=== PATIENT | male | born 1970 | race Caucasian/White ===

== ENCOUNTER 2017-08-14 15:03 | Emergency (ER) | payer OTHER ==
[2017-08-14] MEDS ORDERED: Lidocaine 1%* 5 ML VIAL INJ ONE (15:16)
--- NOTE | 2017-08-14 15:21 | ED ---
Laceration/Wound HPI - HPI Summary HPI Summary: 47-year-old male presents with lacerations left index finger today. He was cleaving meat and hit his left index finger. He has full range motion of his finger. He denies any numbness or tingling. The area is still bleeding a little bit. Tetanus up-to-date. He denies any other injury. Cleaned the area with peroxide. - History of Current Complaint Stated Complaint: LT INDEX FINGER LAC Time Seen by Provider: 08/14/17 15:09 Pain Intensity: 0 - Allergy/Home Medications Allergies/Adverse Reactions: Allergies Allergy/AdvReac Type Severity Reaction Status Date / Time aspirin AdvReac Mild GI Upset Verified 08/08/17 13:02 PMH/Surg Hx/FS Hx/Imm Hx Endocrine/Hematology History: Denies: Hx Anticoagulant Therapy, Hx Diabetes, Hx Thyroid Disease Cardiovascular History: Denies: Hx Hypertension, Hx Pacemaker/ICD Respiratory History: Reports: Hx Seasonal Allergies Denies: Hx Asthma, Hx Chronic Obstructive Pulmonary Disease (COPD) History: Denies: Hx Renal Disease Musculoskeletal History: Reports: Hx Arthritis, Hx Back Problems, Other Musculoskeletal History - Degenerative Disc Disease Sensory History: Reports: Hx Contacts or Glasses, Hx Hearing Problem Denies: Hx Hearing Aid Opthamlomology History: Reports: Hx Contacts or Glasses Neurological History: Reports: Hx Headaches - Occasionally, Other Neuro Impairments/Disorders - PAIN CLINIC PT Denies: Hx Dementia, Hx Seizures Psychiatric History: Denies: Hx Panic Disorder, Hx Substance Abuse - Surgical History Surgery Procedure, Year, and Place: arthroscopy to right shoulder - rotator cuff repair. tendon in lt thumb Infectious Disease History: No Infectious Disease History: Denies: Hx Clostridium Difficile, Hx Hepatitis, Hx Human Immunodeficiency Virus (HIV), Hx of Known/Suspected MRSA, Hx Shingles, Hx Tuberculosis, Traveled Outside the [place] in Last 30 Days - Family History Known Family History: Positive: Diabetes - Social History Alcohol Use: Rare Alcohol Amount: "quit drinking" 8 months ago Substance Use Type: Reports: Marijuana Substance Use Comment - Amount & Last Used: [place], daily marijuana Smoking Status (MU): Current Every Day Smoker Type: Cigarettes Amount Used/How Often: 1/2 PPD Length of Time of Smoking/Using Tobacco: 20+ years Have You Smoked in the Last Year: Yes Review of Systems Negative: Fever Negative: Chest Pain Negative: Shortness Of Breath Positive: Other - left index finger laceration All Other Systems Reviewed And Are Negative: Yes Physical Exam Triage Information Reviewed: Yes Vital Signs On Initial Exam: Initial Vitals Temp Pulse Resp BP Pulse Ox 99.2 F 76 18 120/91 95 08/14/17 15:04 08/14/17 15:04 08/14/17 15:04 08/14/17 15:04 08/14/17 15:04 Vital Signs Reviewed: Yes Appearance: Positive: Well-Appearing Skin: Positive: Warm, Dry, Other - 1cm lac of left middle phalanx index finger Head/Face: Positive: Normal Head/Face Inspection Eyes: Positive: Normal, Conjunctiva Clear Respiratory/Lung Sounds: Positive: Clear to Auscultation, Breath Sounds Present Cardiovascular: Positive: Normal, RRR Musculoskeletal: Positive: Strength/ROM Intact - left index finger, Other - good pulses, capillary refill<2 secs Neurological: Positive: Normal Psychiatric: Positive: Normal Procedures - Laceration/Wound Repair 1 Location: Other - left index finger Description: Linear Anesthesia: Digital, 1.0% Length, Depth and Shape: 1cm by 1/2cm deep Irrigated w/ Saline (ccs): 200 Laceration/Wound Explored: no foreign body removed Closure: Single Layer Suture Type: Prolene - 4-0 Number of Sutures: 2 Layer Closure?: No Sterile Dressing Applied?: Yes - telfa Diagnostics - Vital Signs Vital Signs Temp Pulse Resp BP Pulse Ox 08/14/17 15:04 99.2 F 76 18 120/91 95 - Laboratory Lab Statement: Any lab studies that have been ordered have been reviewed, and results considered in the medical decision making process. Laceration Repair Course/Dx - Course Course Of Treatment: 47-year-old male presents with lacerations left index finger today. He was cleaving meat and hit his left index finger. He has full range motion of his finger. He denies any numbness or tingling. The area is still bleeding a little bit. Tetanus up-to-date. He denies any other injury. Cleaned the area with peroxide. On exam has 1cm laceration of middle phalanx of left index finger. cleaned and Closed with 2 sutures. Patient understands and agrees the plan. - Differential Dx Differental Diagnoses: Abrasion, Avulsion, Laceration - Clinical Impression Provider Diagnoses: Laceration of left index finger Discharge - Discharge Plan Condition: Good Disposition: HOME Patient Education Materials: Care For Your Stitches (ED) Referrals: iDdi Barroso MD [Primary Care Provider] - Additional Instructions: Take Tylenol or ibuprofen for pain Keep area clean and dry for 24 hours Return to ED or primary in 10-14 days to have sutures removed Return to ED if develop signs of infection such as fever, spreading redness, or pus.
[2017-08-14 15:48] VITALS: BP 131/82
== END 2017-08-14 15:45 | disposition home or self-care (01) ==
LOC: ED 15:03
DX: S61.211A Laceration without foreign body of left index finger without damage to nail, initial encounter (principal); W45.8XXA Other foreign body or object entering through skin, initial encounter; Y93.G1 Activity, food preparation and clean up; Y92.9 Unspecified place or not applicable; F17.210 Nicotine dependence, cigarettes, uncomplicated
CPT/HCPCS: 12001; 99282

== ENCOUNTER → 2018-12-14 11:31 | Emergency (ER) | payer OTHER ==
[~2018-12-14 11:31] MED LIST: Acetaminophen TAB* 325 MG PO ONE; Ibuprofen TAB* 600 MG PO ONE; Lidocaine 1%** 5 ML VIAL INJ ONE
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
[2018-12-14 13:18] VITALS: BP 129/87
== END | disposition home or self-care (01) ==
LOC: ED 11:31
DX: S41.112A Laceration without foreign body of left upper arm, initial encounter (principal); F17.210 Nicotine dependence, cigarettes, uncomplicated; W25.XXXA Contact with sharp glass, initial encounter
CPT/HCPCS: 12001; 96372; 99282; A9270-GY